=== PATIENT | male | born 1985 | race Caucasian/White ===

== ENCOUNTER 2017-12-25 09:31 | Emergency (ER) | payer MEDICAID ==
[~2017-12-25] VITALS: Ht 170.2 cm; Wt 57.0 kg
[~2017-12-25 09:31] MED LIST: AZIT-63 PO; MOT200T PO; RANI-366 PO; SILV50CR31 TP
[2017-12-25 09:34] VITALS: BP 135/74
[2017-12-25] MEDS ORDERED: ERYT1OIN6 EACHEYE (10:06)
[2017-12-25] MEDS ORDERED: DOXY100C43 PO (10:06)
[2017-12-25] MEDS ORDERED: OLOP2.5D OP (10:06)
== END 2017-12-25 10:16 | disposition home or self-care (01) ==
LOC: ER 09:32
DX: H01.001 Unspecified blepharitis right upper eyelid (principal); H01.004 Unspecified blepharitis left upper eyelid; Z91.030 Bee allergy status; Z79.899 Other long term (current) drug therapy; Z56.0 Unemployment, unspecified
CPT/HCPCS: 99283